=== PATIENT | female | born 1960 | race Caucasian/White ===

== ENCOUNTER → 2023-06-19 07:09 | Outpatient (REF) | payer BC, SELFPAY | LOC: HWRAD 07:09 | PROVIDERS: ATTENDING PHYSICIAN Specialist | DX: K76.9 Liver disease, unspecified (principal) | CPT/HCPCS: 76700 ==

== ENCOUNTER → 2023-06-24 06:19 | Day surgery (SDC) | payer BC, SELFPAY | LOC: GI 06:19 | PROVIDERS: ATTENDING PHYSICIAN Specialist | DX: Z12.11 Encounter for screening for malignant neoplasm of colon (principal); K63.5 Polyp of colon; K57.30 Diverticulosis of large intestine without perforation or abscess without bleeding; K21.00 Gastro-esophageal reflux disease with esophagitis, without bleeding; K31.7 Polyp of stomach and duodenum; K31.89 Other diseases of stomach and duodenum; Z86.010 Personal history of colon polyps; Z98.0 Intestinal bypass and anastomosis status | CPT/HCPCS: 45380; 43239; 88305; 88342 ==

== ENCOUNTER → 2023-10-09 14:42 | Outpatient (REF) | payer BC, SELFPAY | LOC: HWRCS 14:42 | PROVIDERS: ATTENDING PHYSICIAN Internal Medicine; FAMILY PHYSICIAN Nurse Practitioner Adult Health | DX: E78.01 Familial hypercholesterolemia (principal); R00.0 Tachycardia, unspecified; R60.0 Localized edema | CPT/HCPCS: 93306 ==

== ENCOUNTER → 2024-05-09 10:50 | Outpatient (REF) | payer BC, SELFPAY | LOC: WDC 10:50 | PROVIDERS: ATTENDING PHYSICIAN Student in an Organized Health Care Education/Training Program | DX: Z12.31 Encounter for screening mammogram for malignant neoplasm of breast (principal) | CPT/HCPCS: 77063; 77067 ==

== ENCOUNTER → 2024-10-06 10:25 | Outpatient (REF) | payer MEDICARE, BC, SELFPAY | LOC: HWRAD 10:25 | PROVIDERS: ATTENDING PHYSICIAN Internal Medicine Rheumatology; FAMILY PHYSICIAN Student in an Organized Health Care Education/Training Program | DX: M81.0 Age-related osteoporosis without current pathological fracture (principal) | CPT/HCPCS: 77080 ==

== ENCOUNTER 2025-04-18 06:19 | Day surgery (SDC) | payer MEDICARE, BC, SELFPAY ==
[2025-04-18] VITALS (7 sets, daily range): BP systolic 132–157; BP diastolic 68–84; BMI 24.7
[2025-04-18] MEDS: TYLENOL 1000 MG PO (14:13)
[2025-04-18] MEDS: NORMOSOL-R/PLASMALYTE-A 1000 IV (14:14)
--- NOTE | 2025-04-18 16:53 | W.IMMPOSTOP ---
Surgical Immed Post Op Note
-
Primary Surgeon: Renato Morfin MD
Assisting Surgeon:
Pre-op Diagnosis: right knee medial meniscus tear
Post-op Diagnosis: right knee medial meniscus tear
Procedure Performed: arthroscopic right knee partial medial meniscectomy
Anesthesia Type: general
Specimen / Cultures: none
Estimated Blood Loss: 1mL
Complications: none apparent
Operative Findings: undersurface tear posterior horn medial meniscus, grade 1 chondrosis medial femoral condyle and patella
Tourniquet time: 23 minutes
Operative dictation#: [id number]
[2025-04-18] MEDS: DILAUDID 0.25 MG IV (17:14)
== END 2025-04-18 18:25 | disposition home or self-care (01) ==
LOC: SDS 06:19
PROVIDERS: ATTENDING PHYSICIAN Student in an Organized Health Care Education/Training Program; FAMILY PHYSICIAN Student in an Organized Health Care Education/Training Program
DX: S83.241A Other tear of medial meniscus, current injury, right knee, initial encounter (principal); X58.XXXA Exposure to other specified factors, initial encounter; M22.41 Chondromalacia patellae, right knee
CPT/HCPCS: 29881